=== PATIENT | female | born 1975 | race Caucasian/White ===

== ENCOUNTER 2017-08-19 19:03 | Emergency (ER) | payer MEDICAID ==
[~2017-08-19] VITALS: Ht 160 cm; Wt 134.0 kg
[~2017-08-19 19:03] MED LIST: CALC600T PO; PREN-39 PO
[2017-08-19 19:13] VITALS: Ht 160 cm; Wt 134.0 kg
[2017-08-19] MEDS ORDERED: ALBUTEROL 0.083% (NEB) 2.5 MG/3 ML AMP HHN STA ×2 (22:03→23:48)
[2017-08-19] MEDS ORDERED: IPRATROPIUM (NEB) 0.5 MG/2.5 ML AMP HHN ONE (22:30)
--- NOTE | 2017-08-19 22:48 | ERA ---
ER Documentation Chief Complaint Date/Time DATE: 08/19/17 TIME: 22:46 Chief Complaint cough, sob and wheezing, has asthma HPI 41-year-old female presents with a chief complaints of cough 3 days. Patient has a history of asthma. Describes wheezing and mild shortness of breath. No alleviating factors. Has not taken any medications to relieve the symptoms. Does not have albuterol inhaler. Denies chest pain, unilateral leg pain/ swelling, fever, diaphoresis, epigastric pain, ingestion of foreign body, rash, pruritis, or swelling. Denies history of VTE, clotting disorder, or cardiac disease. Patient has no other complaints and describes no other associated manifestations. Nursing notes have been reviewed and are consistent with history given. ROS All systems reviewed and are negative except as per history of present illness. Medications Home Meds Active Scripts Prednisone* (Prednisone*) 20 Mg Tab, 40 MG PO DAILY for 4 Days, TAB Prov:SHAHEEN NAVARRETE PA-C 08/20/17 Albuterol Sulfate* (Proair HFA*) 8.5 Gm Hfa.aer.ad, 2 PUFF INH Q4, #1 INHALER Prov:SHAHEEN NAVARRETE PA-C 08/20/17 Reported Medications Calcium Carbonate (Oyster Shell Calcium) 600 Mg Tablet, 600 MG PO DAILY 02/28/15 Vits W-Ca,Fe,Fa(<1MG) ( Vitamins) 1 Tab Tablet, 1 TAB PO DAILY 02/01/15 Allergies Allergies: Coded Allergies: No Known Drug Allergies (Verified Allergy, Mild, 02/28/15) PMhx/Soc History of Surgery: Yes () Anesthesia Reaction: No Hx Neurological Disorder: No Hx Respiratory Disorders: Yes (Asthma) Hx Cardiac Disorders: No Hx Psychiatric Problems: No Hx Miscellaneous Medical Probl: No Hx Alcohol Use: No Hx Substance Use: No Hx Tobacco Use: No Smoking Status: Never smoker Physical Exam Vitals Vital Signs Date Time Temp Pulse Resp B/P Pulse Ox O2 Delivery O2 Flow Rate FiO2 08/19/17 23:58 94 20 98 21 08/19/17 22:17 96 20 96 21 08/19/17 19:13 99.3 98 20 135/62 97 Physical Exam Const: Morbidly obese. No acute distress. Pulm: Moderate wheezing in predominantly upper lung sarkar. No stridor , tripoding or drooling. Neck: No cervical lymphadenopathy, masses or goiter palpated. Trachea midline. Supple ~ No meningismus. Auscultation reviled good air movement and no bruits. Nose: Normal nose without discharge, septal deviation, or sinus tenderness. Cardio: Regular rate and rhythm; No murmurs, gallops or rubs auscultated. No JVD grossly observed. Radial and posterior tibial pulses 2+ bilaterally. No cyanosis. Capillary refill less than 2 seconds. Oral: No oral edema visualized. Mucous membranes moist and pink. Head: Normocephalic, Atraumatic. Eyes: Non-injected; No scleral erythema, discharge or foreign body. EOMI and DANIEL bilaterally. Ears: Normal External Ears, EACs clear, TM normal bilaterally without erythema. Abd: Soft, non tender, non distended. No guarding, masses. Normal bowel sounds. No McBurney's point tenderness. MS: Normal motor strength, normal tone with gross examination. Skin: No petechiae or rashes. No ulcer, induration, jaundice. Good turgor. Back: No midline, flank or CVA tenderness. Ext: No cyanosis, edema or palpable cord. Normal movement of all extremities grossly observed. Neur: Awake, alert and oriented x3. Neurovascularly intact bilaterally. Psych: Normal Mood and Affect. Results 24 hrs Current Medications Medications (Trade) Dose Ordered Sig/Mihai Route PRN Reason Start Time Stop Time Status Last Admin Dose Admin Albuterol (Proventil 0.083% (Neb)) 5 mg ONCE STAT [facility] 08/19/17 22:03 08/19/17 22:04 [place] 08/19/17 22:14 Ipratropium [place] (Atrovent 0.02% (Neb)) 0.5 mg ONCE ONCE [facility] 08/19/17 22:30 08/19/17 22:31 [place] 08/19/17 22:15 Albuterol (Proventil 0.083% (Neb)) 5 mg ONCE STAT [facility] 08/19/17 23:48 08/19/17 23:50 [place] 08/19/17 23:56 Ipratropium [place] (Atrovent 0.02% (Neb)) 0.5 mg ONCE ONCE [facility] 08/20/17 00:00 08/20/17 00:01 [place] 08/19/17 23:56 Prednisone (Prednisone) 60 mg ONCE ONCE PO 08/20/17 00:30 08/20/17 00:31 08/20/17 00:11 Procedures/[facility] Patient was evaluated and worked up for shortness of breath as described in the history and physical exam. The history provided no identifiable exacerbating triggers of patients known asthma. The differential diagnosis is vast and includes, but is not limited to the following: asthma, pneumonia, bronchitis, bronchiolitis, epiglottis, acute urticaria, foreign body, etc. RT was consulted, and oxygen, 5 mg albuterol and Ipratropium one hour continuous nebulization was ordered. Physical exam improved lungs for moderate some mild wheezes. Second breathing treatment ordered along with 60 mg prednisone p.o. After reevaluation, the patients symptoms had improved and the lungs were clear to auscultation with no crackles, wheezing or any extra respiratory effort. The current most likely diagnosis is asthma exacerbation. At this time, I have little suspicion for pulmonary embolism, pneumonia, CHF, acute cardiac disorders , foreign body obstruction, allergic reaction, angioedema, or other obstructive disorders. I have presented the case to my attending who agrees with the assessment and plan. The patients vitals are stable. Following treatment, I no longer have a suspicion for endangerment of the airway. Their current status is appropriate for discharge. Patient will be discharged at this time with discharge instructions and return precautions. Prescriptions for continued out-patient therapy will include the following: Albuterol MDI as needed, and prednisone p.o. 4 days. After thorough patient education, they have verbally responded that they understand the treatment plan and proper use of medications. Departure Diagnosis: Primary Impression: Asthma Qualified Code: J45.901 - Asthma with acute exacerbation, unspecified asthma severity, unspecified whether persistent Additional Impressions: Asthma attack Qualified Code: J45.901 - Mild asthma with exacerbation, unspecified whether persistent Bronchitis Cough Condition: Stable Additional Instructions: Follow up with your PCP within the next 1-3 days for a more thorough evaluation and a possible referral to a specialist. Return the the emergency department immediately if symptoms worsen or change. If you have any questions regarding medications, ask your pharmacist or us before you leave. If any adverse reactions occur while taking your medications, discontinue the treatment and return to the emergency department immediately. Take your medications as directed, and complete the entire course of treatment. SHAHEEN NAVARRETE PA-C Aug 19, 2017 22:48
--- NOTE | 2017-08-19 23:40 | RADRPT ---
PROCEDURE: XR Chest. CLINICAL INDICATION: Cough TECHNIQUE: PA and lateral views of the chest COMPARISON: No prior Chest x-ray FINDINGS: The cardiomediastinal silhouette is within normal limits of size. The lungs are clear without pleur al effusion or focal consolidation. No pneumothorax. The osseous structures and soft tissues are unr emarkable. IMPRESSION: 1. No evidence for active cardiopulmonary disease. RPTAT:AAJJ Physician Ryan Date Time Electronically viewed and signed by Mono Plascencia Physician on 08/19/2017 23:39 CHELSIE/
[2017-08-20] MEDS ORDERED: IPRATROPIUM (NEB) 0.5 MG/2.5 ML AMP HHN ONE
[2017-08-20] MEDS ORDERED: ALBU8.5H3 INH (00:04)
[2017-08-20] MEDS ORDERED: PRED20TA PO (00:06)
[2017-08-20] MEDS ORDERED: predniSONE 20 MG TAB PO ONE (00:30)
[2017-08-20 00:36] VITALS: BP 115/53; PULSE 101; RESP 22; TEMP 98.8
== END 2017-08-20 00:36 | disposition home or self-care (01) ==
LOC: FTE 19:03
DX: J45.901 Unspecified asthma with (acute) exacerbation (principal); J20.9 Acute bronchitis, unspecified
CPT/HCPCS: 71020; 94640; 94644; J7512; Z7502; Z7610

== ENCOUNTER 2019-04-06 11:15 | Emergency (ER) | payer SELFPAY ==
[~2019-04-06] VITALS: Ht 167.6 cm; Wt 132.0 kg
[~2019-04-06 11:15] MED LIST changes: +ALBU8.5H8 INH; +PRED20TA PO
[2019-04-06 11:24] VITALS: RESP 18; Ht 167.6 cm; Wt 132.0 kg
--- NOTE | 2019-04-06 14:49 | ERD ---
ER Documentation Chief Complaint Chief Complaint generalized abdominal pain since yesterday HPI 43-year-old female presenting with left-sided abdominal pain that started yesterday. The pain is intermittent, nonradiating, aching, with no associated fever, chills, nausea, vomiting, chest pain, shortness of breath, diarrhea or constipation. No dysuria or hematuria. No alleviating or exacerbating factors. Pain is a 9 out of 10. ROS All systems reviewed and are negative except as per history of present illness. Medications Home Meds Active Scripts Prednisone* (Prednisone*) 20 Mg Tab, 40 MG PO DAILY for 4 Days, TAB Prov:SHAHEEN NAVARRETE PA-C 08/20/17 Albuterol Sulfate* (Proair HFA*) 8.5 Gm Hfa.aer.ad, 2 PUFF INH Q4, #1 INHALER Prov:SHAHEEN NAVARRETE PA-C 08/20/17 Reported Medications Calcium Carbonate (Oyster Shell Calcium) 600 Mg Tablet, 600 MG PO DAILY 02/28/15 Vits W-Ca,Fe,Fa(<1MG) ( Vitamins) 1 Tab Tablet, 1 TAB PO DAILY 02/01/15 Allergies Allergies: Coded Allergies: No Known Drug Allergies (Verified Allergy, Mild, 02/28/15) PMhx/Soc History of Surgery: Yes () Anesthesia Reaction: No Hx Neurological Disorder: No Hx Respiratory Disorders: Yes (Asthma) Hx Cardiac Disorders: No Hx Psychiatric Problems: No Hx Miscellaneous Medical Probl: No Hx Alcohol Use: No Hx Substance Use: No Hx Tobacco Use: No FmHx Family History: No diabetes Physical Exam Vitals Vital Signs Date Temp Pulse Resp B/P (MAP) Pulse Ox O2 O2 Flow FiO2 Time Delivery Rate 04/06/19 77 108/56 99 Room Air 16:19 (73) 04/06/19 97.5 71 18 117/58 100 11:24 (77) Physical Exam Const: No acute distress Head: Atraumatic Eyes: Normal Conjunctiva ENT: Normal External Ears, Nose and Mouth. Neck: Full range of motion. No meningismus. Resp: Clear to auscultation bilaterally Cardio: Regular rate and rhythm, no murmurs Abd: Soft, mild left upper quadrant and left lower quadrant tenderness to palpation with no rebound or guarding. non distended. Normal bowel sounds Skin: No petechiae or rashes Back: No midline or flank tenderness Ext: No cyanosis, or edema Neur: Awake and alert Psych: Normal Mood and Affect Result Diagram: 04/06/19 1237 04/06/19 1237 Results 24 hrs Laboratory Tests Test 04/06/19 12:37 04/06/19 14:34 White Blood Count 10.4 10^3/ul Red Blood Count 4.86 10^6/ul Hemoglobin 13.3 g/dl Hematocrit 41.8 % Mean Corpuscular Volume 86.0 fl Mean Corpuscular Hemoglobin 27.4 pg Mean Corpuscular Hemoglobin Concent 31.8 g/dl Red Cell Distribution Width 14.0 % Platelet Count 255 10^3/UL Mean Platelet Volume 10.9 fl Immature Granulocytes % 0.300 % Neutrophils % 65.4 % Lymphocytes % 25.4 % Monocytes % 6.2 % Eosinophils % 2.4 % Basophils % 0.3 % Nucleated Red Blood Cells % 0.0 /100WBC Immature Granulocytes # 0.030 10^3/ul Neutrophils # 6.8 10^3/ul Lymphocytes # 2.6 10^3/ul Monocytes # 0.7 10^3/ul Eosinophils # 0.3 10^3/ul Basophils # 0.0 10^3/ul Nucleated Red Blood Cells # 0.0 10^3/ul Urine Color YELLOW Urine Clarity SLIGHTLY CLOUDY Urine pH 6.0 Urine Specific [place] 1.020 Urine Ketones NEGATIVE mg/dL Urine Nitrite NEGATIVE mg/dL Urine Bilirubin NEGATIVE mg/dL Urine Urobilinogen NEGATIVE mg/dL Urine Leukocyte Esterase TRACE Josefina/ul Urine Microscopic RBC 0 /HPF Urine Microscopic WBC 1 /HPF Urine Squamous Epithelial Cells FEW /HPF Urine Hemoglobin NEGATIVE mg/dL Urine Glucose NEGATIVE mg/dL Urine Total Protein NEGATIVE mg/dl Sodium Level 142 mmol/L Potassium Level 3.4 mmol/L Chloride Level 107 mmol/L Carbon Dioxide Level 30 mmol/L Anion Gap 5 Blood Urea Nitrogen 11 mg/dl Creatinine 0.56 mg/dl Est Glomerular Filtrat Rate mL/min > 60 mL/min Glucose Level 96 mg/dl Calcium Level 9.2 mg/dl Total Bilirubin 0.6 mg/dl Direct Bilirubin 0.00 mg/dl Indirect Bilirubin 0.6 mg/dl Aspartate Amino Transf (AST/SGOT) 25 IU/L Alanine Aminotransferase (ALT/SGPT) 25 IU/L Alkaline Phosphatase 85 IU/L Total Protein 8.2 g/dl Albumin 4.0 g/dl Globulin 4.20 g/dl Albumin/Globulin Ratio 0.95 Lipase 49 U/L POC Beta HCG, Qualitative NEGATIVE Procedures/[facility] EMERGENT LABS AND DIAGNOSTIC STUDIES: Lab Results above were reviewed and interpreted by me. CBC: no anemia or evidence of infection CMP: No evidence of clinically significant electrolyte abnormality, acidosis, renal failure, hypoglycemia, liver disease, or biliary obstruction Lipase: no evidence of pancreatitis UA: no evidence of infection Radiology Results as interpreted by Radiology below were reviewed by Sukhwinder Morales MD: CT abdomen and pelvis shows no acute abnormalities Initial Nursing notes reviewed. Previous Medical Records requested via the Electronic Health Record. EMERGENCY DEPARTMENT COURSE / MEDICAL DECISION MAKING: Patient is presenting with left-sided abdominal pain. Differential includes but is not limited to colitis, constipation, diverticulitis, pancreatitis. However labs and imaging did not show any significant abnormalities. At this moment the etiology of the abdominal pain is unknown. The patients vitals have been noted and are currently afebrile and hemodynamically stable. The workup, physical exam and observation period do not indicate a serious cause to the pain. CT was done and the patient does not appear to have appendicitis, diverticular disease, intestinal obstruction, vascular abnormality or other life threatening condition. The patients symptoms have improved while in the ED and the patient remains hemodynamically stable. Patient was able to tolerate PO. The current assessment has been explained to the patient including the fact that the etiology of the pain cannot be ruled out with certainty. Patient was advised that in the event this is early in the process of a more serious condition they may expect their symptoms to worsen and if so to return to the emergency department immediately. Patient was advised to follow up with primary care physician as soon as possible for re-evaluation within the next 1-2 days. All of the patients questions were answered. Patient verbalized understanding of plan and agrees. Advised to return to the ER for reevaluation within 12 hours if symptoms worsen. Patient's blood pressure was elevated (>120/80) but appears stable without evidence of hypertensive emergency or urgency. The patient was counseled about the risks of hypertension and urged to pursue outpatient monitoring and therapy within a week with their primary care physician. Departure Diagnosis: Primary Impression: Abdominal pain Abdominal location: unspecified location Qualified Codes: R10.9 - Unspe cified abdominal pain Condition: Stable PATRICIA MORALES MD Apr 06, 2019 14:49
[2019-04-06 16:19] VITALS: BP 108/56; PULSE 77
== END 2019-04-06 16:20 | disposition home or self-care (01) ==
LOC: FTE 11:15
DX: R10.84 Generalized abdominal pain (principal); J45.909 Unspecified asthma, uncomplicated
CPT/HCPCS: 36415; 74176; 80053; 81001; 81025; 83690; 85025